=== PATIENT | male | born 1995 | race Caucasian/White ===

== ENCOUNTER 2018-06-28 16:42 | Emergency (ER) | payer OTHER ==
[~2018-06-28] VITALS: Ht 185.4 cm; Wt 111.4 kg
--- NOTE | 2018-06-28 18:10 | REP ---
Clinical: Intermittent chest pain . Comparison: None . Technique: PA and lateral. Findings: The mediastinum and cardiac silhouette are normal. The lung guzman are clear and without acute consolidation, effusion, or pneumothorax. The skeletal structures are intact and normal. Impression: 1. No acute cardiopulmonary process. Electronically Signed by Angel Cole MD 06/28/2018 06:02 P
[2018-06-28 18:13] LABS: BASO % 0.3 % (0.0-1.0); EOS # 0.3 10^3/uL (0.0-0.50); EOS % 4.6 % (0.0-3.0); HEMATOCRIT 44.9 % (42.0-52.0); HEMOGLOBIN 15.8 g/dl (13.5-17.5); LYMPH # 2.3 10^3/uL (1.5-6.5); LYMPH % 34.3 % (24.0-44.0); MEAN CORPUSCULAR HEMOGLOBIN 29.4 pg (27.0-33.0); MEAN CORPUSCULAR HGB CONC 35.2 g/dl (32.0-36.5); MEAN CORPUSCULAR VOLUME 83.5 fl (80.0-96.0); MONO # 0.4 10^3/uL (0.0-0.8); MONO % 6.7 % (0.0-5.0); NEUTROPHILS # 3.6 10^3/uL (1.8-7.7); NEUTROPHILS % 53.9 % (36.0-66.0); PLATELET COUNT, AUTOMATED 243 10^3/uL (150-450); RED BLOOD COUNT 5.38 10^6/uL (4.30-6.10); WHITE BLOOD COUNT 6.6 10^3/uL (4.0-10.0)
[2018-06-28 18:52] LABS: BLOOD UREA NITROGEN 12 MG/DL (7-18); CALCIUM LEVEL 8.9 MG/DL (8.5-10.1); CARBON DIOXIDE LEVEL 29 MEQ/L (21-32); CHLORIDE LEVEL 106 MEQ/L (98-107); CPK CREATINE PHOSPHOKINASE 976 U/L (39-308); CREATININE FOR GFR 0.84 MG/DL (0.70-1.30); GLOMERULAR FILTRATION RATE > 60.0 (>60); GLUCOSE, FASTING 83 MG/DL (70-100); MB/CK RELATIVE INDEX 0.22 (< OR =4); POTASSIUM SERUM 3.8 MEQ/L (3.5-5.1); SODIUM LEVEL 141 MEQ/L (136-145); TROPONIN I < 0.02 NG/ML (< 0.10)
[2018-06-28] MEDS ORDERED: hydroCHLOROthiazide 25 MG TAB PO ONE (19:30)
[2018-06-28 22:04] LABS: CPK CREATINE PHOSPHOKINASE 790 U/L (39-308); MB/CK RELATIVE INDEX 0.23 (< OR =4); TROPONIN I < 0.02 NG/ML (< 0.10)
[2018-06-28] MEDS ORDERED: HYDR25TAB PO (22:21)
[2018-06-28 22:30] VITALS: BP 114/67
--- NOTE | 2018-06-29 09:23 | ECGEPIP ---
Stationary ECG Study [facility] - ED Test Date: 2018-06-28 Pat Name: ROSA GO Department: Room: - Gender: M Linux Engineer: bernice : [id number] Requested By: GEMMA MONTIEL Order Number: [id number] Reading MD: Gail Tong Measurements Intervals [place] Rate: 64 P: 60 TX: 143 QRS: 66 QRSD: 120 T: 31 QT: 386 QTc: 400 Interpretive Statements SINUS RHYTHM MODERATE INTRAVENTRICULAR CONDUCTION DELAY NO PRIOR FOR COMPARISON Electronically Signed On 06-29-2018 9:23:28 EST by Gail Tong
== END 2018-06-28 22:42 | disposition home or self-care (01) ==
LOC: M ED 16:42
DX: I10 Essential (primary) hypertension (principal); R07.9 Chest pain, unspecified; Z87.891 Personal history of nicotine dependence; Z82.49 Family history of ischemic heart disease and other diseases of the circulatory system